=== PATIENT | male | born 1965 | race Caucasian/White ===

== ENCOUNTER 2021-11-01 15:30 | Outpatient (RCR) | payer MEDICARE, SELFPAY | END 2021-11-13 23:59 | LOC: DC 15:30 | PROVIDERS: Visit Provider Internal Medicine | DX: E78.5 Hyperlipidemia, unspecified (principal); E11.65 Type 2 diabetes mellitus with hyperglycemia | CPT/HCPCS: G0108 ==

== ENCOUNTER 2021-11-21 14:23 | Outpatient (RCR) | payer MEDICARE, SELFPAY | END 2021-12-13 23:59 | LOC: DC 14:23 | PROVIDERS: Visit Provider Internal Medicine | DX: E78.5 Hyperlipidemia, unspecified (principal); E11.65 Type 2 diabetes mellitus with hyperglycemia | CPT/HCPCS: 97802 ==

== ENCOUNTER 2022-01-09 15:01 | Outpatient (RCR) | payer MEDICARE, SELFPAY | END 2022-01-13 23:59 | LOC: DC 15:01 | PROVIDERS: PCP Internal Medicine; Referring Provider Internal Medicine; Visit Provider Internal Medicine | DX: E11.65 Type 2 diabetes mellitus with hyperglycemia (principal); E78.5 Hyperlipidemia, unspecified | CPT/HCPCS: 97803 ==